=== PATIENT | female | born 1985 | race Two or more races ===

== ENCOUNTER 2017-07-12 08:45 | Inpatient (IN) | payer OTHER ==
[~2017-07-12 08:45] MED LIST: DEXTROSE 5%-LACTATED RINGERS 500 ML IV SCH
[2017-07-12] MEDS ORDERED: DEXTROSE 5%-LACTATED RINGERS 1,000 ML IV SCH (09:45)
[2017-07-12] MEDS ORDERED: BUTORPHANOL TARTRATE 1 MG/ML VIAL ONE ×2 (10:59)
[2017-07-12] MEDS ORDERED: PROMETHAZINE HCL 25 MG/1 ML VIAL ONE (10:59)
[2017-07-12] MEDS ORDERED: AMPICILLIN SODIUM 2 GM VIAL ONE (10:59)
[2017-07-12] MEDS ORDERED: AMPICILLIN - 2 GM in SODIUM CHLORIDE 100 ML IVPB ONE (11:00)
[2017-07-12 11:24] LABS: BASO % 0.5 % (0-2.0); EOS % 0.5 % (0-4.5); HEMATOCRIT 33.2 % (32.4-45.2); HEMOGLOBIN 10.5 GM/dL (10.7-15.3); MCH 26.2 pg (25.7-33.7); MCHC 31.6 g/dl (32.0-36.0); MEAN CELL VOLUME 82.7 fl (80-96); MEAN PLT VOLUME 7.7 fl (7.5-11.1); MONO % 6.8 % (3.8-10.2); NEUT % 78.2 % (42.8-82.8); PLATELET COUNT 254 K/MM3 (134-434); RBC 4.01 M/mm3 (3.60-5.2); RDW 15.1 % (11.6-15.6); WHITE BLOOD COUNT 6.4 K/mm3 (4.0-10.0)
[2017-07-12] MEDS ORDERED: BUTORPHANOL TARTRATE 1 MG/ML VIAL IVPB ONE (11:30)
[2017-07-12] MEDS ORDERED: PROMETHAZINE HCL 25 MG/1 ML VIAL IVPB ONE (11:30)
[2017-07-12 11:37] LABS: INR 0.95 (0.82-1.09); PROTHROMBIN TIME (PATIENT) 10.7 SEC (9.98-11.88)
[2017-07-12 11:40] LABS: ACTIVATED PTT 24.3 SECONDS (26.9-34.4)
[2017-07-12 11:56] VITALS: BMI 26.0
[2017-07-12 11:56] LABS: ANION GAP 8 (8-16); BLOOD UREA NITROGEN 7 mg/dL (7-18); CALCIUM 8.2 mg/dL (8.5-10.1); CHLORIDE 103 mmol/L (98-107); CO2 24 mmol/L (21-32); CREATININE 0.5 mg/dL (0.55-1.02); GLUCOSE,RANDOM 84 mg/dL (74-106); SODIUM 135 mmol/L (136-145)
[2017-07-12] MEDS ORDERED: TUBERCULIN PPD 5 TU/0.1ML SYRINGE (IN PATIENT USE ONLY) ID ONE (12:00)
[2017-07-12] MEDS ORDERED: FENTANYL/BUPIVACAINE/NS/PF - PCEA - 50 ML DISP.SYRIN EP ONE ×2 (13:34→17:55)
[2017-07-12] MEDS: ELECTROLYTE-148 SOLN 1,000 ML IV SCH ×2 (13:45→20:00)
--- NOTE | 2017-07-12 13:45 | HP ---
Past Medical History - Primary Care Physician PCP:: Gertrude Jackson - Admission History Source: Patient - Past Medical History ...: 1 ...Para: 0 ...Term: 0 ...: 0 ...Spon : 0 ...Induced : 0 ...Multiple Gestation: 0 ...EDC by Sono: 07/11/17 - Past Surgical History Past Surgical History: Yes: None - Smoking History Smoking history: Never smoked Have you smoked in the past 12 months: No - Alcohol/Substance Use Hx Alcohol Use: No Home Medications - Allergies Allergies/Adverse Reactions: Allergies Allergy/AdvReac Type Severity Reaction Status Date / Time No Known Allergies Allergy Verified 07/12/17 09:26 - Home Medications Home Medications: Ambulatory Orders Vit/Iron Fum/Folic AC [ Tablet] 1 each PO DAILY 07/12/17 Physical Exam - Maternity Vital Signs: Vital Signs Temperature 97.4 F L 07/12/17 13:00 Pulse Rate 84 07/12/17 13:00 Respiratory Rate 20 07/12/17 13:00 Blood Pressure 122/71 07/12/17 13:00 O2 Sat by Pulse Oximetry (%) Constitutional: Yes: Well Nourished, No Distress Neck: Yes: WNL Lungs: Clear to auscultation Breast(s): Yes: WNL - Abdominal Exam/OB Fundal Height: 39 Number of Fetuses: Single Presentation: Vertex Contractions: Yes Regularity: Irregular Intensity: Mild/Mod Monitor Mode: External Category: I Accelerations: Non-Uniform Decelerations: None - Vaginal Exam/OB Dilatation (cm): 4 cm Effacement (%): 100 Amniotic Membrane Status: Ruptured Amniotic Fluid: Yes: Clear Presentation: Vertex/Position - Physical Exam Musculoskeletal: Yes: WNL Extremities: Yes: WNL - Labs Lab Results: CBC, BMP 07/12/17 11:10 07/12/17 11:10 Hemorrhage Risk Assessment - Risk Factors Risk Score: 0 Risk Level: Low Risk Problem List - Problems (1) Labor established Code(s): BSQ7933 - Assessment/Plan IUP at 39 weeks Labor Plan pit jan
[2017-07-12] MEDS ORDERED: AMPICILLIN SODIUM 1 GM VIAL ONE ×2 (14:38→18:35)
--- NOTE | 2017-07-12 14:38 | PN ---
Ante-Partal Exam - Subjective Subjective: Pt desires epidural Vital Signs: Vital Signs Temperature 98.0 F 07/12/17 14:00 Pulse Rate 90 07/12/17 14:00 Respiratory Rate 20 07/12/17 14:00 Blood Pressure 130/84 07/12/17 14:00 O2 Sat by Pulse Oximetry (%) Bleeding: No Headache: No Visual changes: No Right upper quadrant pain: No - Contractions Contractions: Yes Regularity: Regular Intensity: Mild/Mod Monitor Mode: External - Exam during Labor Heart Rate: 140 Variability: Moderate Heart Rate Location: [facility] Category: I Monitor Accelerations: Present Monitor Decelerations: None Exam: Vaginal Dilatation (cm): 4-5 cm Effacement (%): 100 Amniotic Membrane Status: Ruptured Amniotic Fluid: Clear Presentation: Vertex Station: -1 - Intrapartum Hemorrhage Risk Risk Score: 0 Risk Level: Low Risk - Assessment/Plan Assessment/Plan: Active Labor irregular contractions Plan Pitocing augmentation
[2017-07-12] MEDS: AMPICILLIN - 1 GM in SODIUM CHLORIDE 100 ML IVPB SCH ×3 (15:00→23:54)
[2017-07-12] MEDS ORDERED: NALOXONE HCL 0.4 MG/ML VIAL IVPUSH PRN (15:13)
[2017-07-12] MEDS ORDERED: FENTANYL/BUPIVACAINE/NS/PF - PCEA - 50 ML DISP.SYRIN EP SCH (15:15)
[2017-07-12] MEDS ORDERED: OXYTOCIN 30 UNITS in 0.9% NS 30 UNIT/500 ML INFUS.BAG IVPB SCH (17:00)
[2017-07-12] MEDS ORDERED: LIDOCAINE HCL 1% PRESERVATIVE FREE - 30ML VIAL ONE (20:05)
[2017-07-12] MEDS ORDERED: OXYTOCIN 20 UNITS in 0.9% NS 20 UNIT/1,000 ML INFUS.BAG IV ONE (20:05)
[2017-07-12] MEDS ORDERED: BISACODYL 10 MG SUPP.RECT PR PRN (22:34)
[2017-07-12] MEDS ORDERED: WITCH HAZEL 50% (TUCKS) 40 PAD/JAR PAD TP PRN (22:34)
[2017-07-12] MEDS ORDERED: METHYLERGONOVINE MALEATE 0.2 MG/1 ML AMP IM PRN (22:34)
[2017-07-12] MEDS ORDERED: BENZOCAINE 28 GM HEMORRHOIDAL OINTMENT PR PRN (22:34)
[2017-07-12] MEDS ORDERED: BENZOCAINE 20% 57 GM BOTTLE TP PRN (22:34)
--- NOTE | 2017-07-12 22:34 | PN ---
Delivery - Delivery Vaginal Delivery: No Problems, Shoulder/Difficult (Posterior shoulder removal), Spontaneous Episiotomy/Laceration: Right Mediolateral EBL (cc): 350 (jen and posterior shoulder removal. nuchal cord x 1 ) Delivery, Single - Stages of Labor Placenta: Yes: Spontaneous - Condition of Infant Gender: Female Position: OA - [place] Feeding Plan Initial Plan: Exclusive throughout hospitalization
--- NOTE | 2017-07-12 22:37 | PN ---
Ante-Partal Exam - Subjective Subjective: Pt doing well with epidural Vital Signs: Vital Signs Temperature 99.7 F H 07/12/17 18:10 Pulse Rate 100 H 07/12/17 20:30 Respiratory Rate 20 07/12/17 20:30 Blood Pressure 132/86 07/12/17 20:30 O2 Sat by Pulse Oximetry (%) 99 07/12/17 20:30 Bleeding: No Headache: No Visual changes: No Right upper quadrant pain: No - Contractions Contractions: Yes Regularity: Regular Intensity: Mild/Mod Monitor Mode: External - Exam during Labor Category: I Monitor Decelerations: None Exam: Vaginal Dilatation (cm): rim Effacement (%): 100 Amniotic Membrane Status: Ruptured Amniotic Fluid: Clear Presentation: Vertex - Intrapartum Hemorrhage Risk Risk Score: 0 Risk Level: Low Risk - Assessment/Plan Assessment/Plan: Active labor Plan Anticipate vaginal delivery
[2017-07-12] MEDS ORDERED: OXYTOCIN 20 UNITS in 0.9% NS 20 UNIT/1,000 ML INFUS.BAG IV SCH (22:45)
[2017-07-12] MEDS ORDERED: ACETAMINOPHEN 325 MG TABLET (FP) PO PRN (23:01)
[2017-07-12 23:10] LABS: ARTERIAL BLOOD GAS BASE EXCESS -7.2 meq/l (-2-2)
[2017-07-12 23:14] LABS: ARTERIAL BLD GAS O2 SATURATION 36.5 % (90-98.9); ARTERIAL BLOOD GAS PO2 23.8 mmHg (80-100); ARTERIAL BLOOD GAS pH 7.21 (7.35-7.45)
[2017-07-12] MEDS ORDERED: ACETAMINOPHEN 325 MG TABLET (FP) ONE (23:14)
[2017-07-12] MEDS: oxyCODONE HCL 5 MG TABLET PO PRN (23:15)
[2017-07-12] MEDS ORDERED: oxyCODONE HCL 5 MG TABLET ONE (23:15)
[2017-07-13] MEDS: oxyCODONE HCL 5 MG TABLET PO PRN (08:27)
[2017-07-13] MEDS: ACETAMINOPHEN 325 MG TABLET (FP) PO PRN ×2 (08:28→21:30)
[2017-07-13 08:30] LABS: BASO % 0.1 % (0-2.0); HEMATOCRIT 31.4 % (32.4-45.2); HEMOGLOBIN 9.7 GM/dL (10.7-15.3); LYMPH % 6.4 % (8-40); MCH 25.6 pg (25.7-33.7); MCHC 30.8 g/dl (32.0-36.0); MEAN PLT VOLUME 8.4 fl (7.5-11.1); MONO % 5.4 % (3.8-10.2); NEUT % 88.1 % (42.8-82.8); PLATELET COUNT 250 K/MM3 (134-434); RBC 3.78 M/mm3 (3.60-5.2); RDW 15.1 % (11.6-15.6); WHITE BLOOD COUNT 21.6 K/mm3 (4.0-10.0)
[2017-07-13] MEDS ORDERED: DIPHTH,PERTUSS(ACELL),TET 0.5 ML DISP.SYRIN IM ONE (10:00)
[2017-07-13] MEDS ORDERED: FLU VACC QS2017-18 36MOS UP/PF 60 MCG/0.5 ML SYRINGE IM ONE (10:00)
--- NOTE | 2017-07-13 10:46 | PN ---
Post Progress Note - Subjective Subjective: 31 yo status post vaginal delivery, seen and evaluated. Doing well Post Day: 1 Type of Delivery: Vital Signs: Vital Signs Temperature 98.6 F 07/13/17 08:10 Pulse Rate 97 H 07/13/17 08:10 Respiratory Rate 20 07/13/17 08:10 Blood Pressure 121/75 07/13/17 08:10 O2 Sat by Pulse Oximetry (%) 99 07/12/17 23:30 Breast Exam: Yes: Soft Uterus: Yes: Fundus Firm Abdomen/GI: Yes: Abdomen soft, Tolerating PO Lochia: Yes: Rubra Lochia, amount: Moderate Extremities: Yes: Calves non-tender Activity: Ambulating - Labs Labs: CBC WBC 21.6 K/mm3 (4.0-10.0) H D 07/13/17 06:56 RBC 3.78 M/mm3 (3.60-5.2) 07/13/17 06:56 Hgb 9.7 GM/dL (10.7-15.3) L 07/13/17 06:56 Hct 31.4 % (32.4-45.2) L 07/13/17 06:56 MCV 83.0 fl (80-96) 07/13/17 06:56 MCH 25.6 pg (25.7-33.7) L 07/13/17 06:56 MCHC 30.8 g/dl (32.0-36.0) L 07/13/17 06:56 RDW 15.1 % (11.6-15.6) 07/13/17 06:56 Plt Count 250 K/MM3 (134-434) 07/13/17 06:56 MPV 8.4 fl (7.5-11.1) 07/13/17 06:56 Neutrophils % 88.1 % (42.8-82.8) H 07/13/17 06:56 Lymphocytes % 6.4 % (8-40) L D 07/13/17 06:56 Monocytes % 5.4 % (3.8-10.2) 07/13/17 06:56 Eosinophils % 0.0 % (0-4.5) D 07/13/17 06:56 Basophils % 0.1 % (0-2.0) 01/23/18 06:56 Problem List - Problems (1) Status post normal vaginal delivery Code(s): [id number] - Assessment/Plan Status post vaginal delivery Stable Continue routine care
[2017-07-13] MEDS: IBUPROFEN 600 MG TABLET (FP) PO PRN ×2 (14:16→21:30)
[2017-07-14] MEDS: IBUPROFEN 600 MG TABLET (FP) PO PRN ×2 (05:40→10:23)
[2017-07-14] MEDS: ACETAMINOPHEN 325 MG TABLET (FP) PO PRN ×2 (05:40→10:23)
[2017-07-14 11:18] VITALS: BP 120/76; PULSE 84; TEMP 98.7
[2017-07-14] MEDS ORDERED: amLODIPine BESYLATE 5 MG TABLET (FP) PO ONE (15:15)
== END 2017-07-14 14:43 | disposition home or self-care (01) | DRG 775 ==
LOC: JDEL 08:45 → JLDR 10:40 → J3W 07-13 00:33
PROVIDERS: ADMIT Obstetrics & Gynecology; ATTEND Obstetrics & Gynecology
PROC: 10E0XZZ Delivery of Products of Conception, External Approach (ICD-10-PCS; principal; 2017-07-12)
PROC: 0W8NXZZ Division of Female Perineum, External Approach (ICD-10-PCS; 2017-07-12)
DX: O64.4XX0 Obstructed labor due to shoulder presentation, not applicable or unspecified (principal); O69.81X0 Labor and delivery complicated by cord around neck, without compression, not applicable or unspecified; Z3A.39 39 weeks gestation of pregnancy; Z37.0 Single live birth
CPT/HCPCS: 36415; 36600; 59409; 80048; 82803; 85025; 85610; 85730; 86593; 86850; 86900; 86901; 90686; 90715

== ENCOUNTER 2017-11-09 14:33 | Emergency (ER) | payer OTHER ==
[2017-11-09 14:55] VITALS: BP 107/44; PULSE 86; TEMP 98; BMI 23.0
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
== END 2017-11-09 15:34 | disposition home or self-care (01) ==
LOC: JERFT 14:33
DX: S63.502A Unspecified sprain of left wrist, initial encounter (principal); V43.52XA Car driver injured in collision with other type car in traffic accident, initial encounter; Y92.414 Local residential or business street as the place of occurrence of the external cause; Y93.89 Activity, other specified; Y99.8 Other external cause status
CPT/HCPCS: 73110-TC-LR-FY; 73130-TC-LR-FY; 99281-25